=== PATIENT | female | born 1970 | race Caucasian/White ===

== ENCOUNTER 2024-03-28 16:09 | Outpatient (CLI) | payer BC, SELFPAY ==
[2024-03-29 18:34] LABS: Hepatitis C Ab w Rflx HCV PCR Negative (Negative)
[2024-03-29 18:37] LABS: HIV-1/2 Ag & Ab Screen Negative (Negative)
[2024-03-31 14:19] LABS: Syphilis IgG w/Reflex Nonreactive (Nonreactive)
== END 2024-03-28 16:10 | disposition home or self-care (01) ==
LOC: LBO 16:09
PROVIDERS: PCP Emergency Medicine; Visit Provider Nurse Practitioner Women's Health
DX: Z11.3 Encounter for screening for infections with a predominantly sexual mode of transmission (principal); Z30.432 Encounter for removal of intrauterine contraceptive device; N95.1 Menopausal and female climacteric states; F32.A Depression, unspecified
CPT/HCPCS: 36415; 86803; 87389; 86780

== ENCOUNTER 2024-03-28 16:24 | Outpatient (REF) | payer BC, SELFPAY ==
[2024-03-31 13:28] LABS: Chlamydia Result Negative (Negative); GC Result Negative (Negative)
== END 2024-03-28 16:25 | disposition home or self-care (01) ==
LOC: LBN 16:24
PROVIDERS: PCP Emergency Medicine; Visit Provider Nurse Practitioner Women's Health
DX: Z11.3 Encounter for screening for infections with a predominantly sexual mode of transmission (principal)
CPT/HCPCS: 87491; 87591

== ENCOUNTER 2024-06-14 14:48 | Outpatient (CLI) | payer BC, SELFPAY ==
[2024-06-16 12:21] LABS: HSV Type 1 Ab, IgG Negative (Negative); HSV Type 2 Ab, IgG Positive (Negative)
== END 2024-06-14 14:49 | disposition home or self-care (01) ==
LOC: LBO 14:49
PROVIDERS: PCP Emergency Medicine; Visit Provider Nurse Practitioner Women's Health
DX: Z11.3 Encounter for screening for infections with a predominantly sexual mode of transmission (principal)
CPT/HCPCS: 36415; 86695; 86696